=== PATIENT | male | born 1985 | race Caucasian/White ===

== ENCOUNTER 2024-09-20 08:22 | Emergency (ER) | payer OTHER ==
[2024-09-20] MEDS ORDERED: Sodium Chloride 0.9% 10 ML Syringe FLUSH PRN (08:31)
[2024-09-20 08:49] LABS: BASOPHILS ABSOLUTE AUTO 0.0 x10^3/uL (0.0-0.2); BASOPHILS PERCENT AUTO 0.5 % (0.2-1.2); EOSINOPHILS ABSOLUTE AUTO 0.1 x10^3/uL (0.0-0.5); EOSINOPHILS PERCENT AUTO 1.6 % (0.0-4.0); LYMPHOCYTES ABSOLUTE AUTO 1.7 x10^3/uL (1.0-4.8); NEUTROPHILS ABSOLUTE AUTO 3.5 x10^3/uL (1.8-7.7); WHITE BLOOD CELL COUNT,WBC 5.8 x10^3/uL (4.0-10.0)
[2024-09-20 09:02] LABS: IMMATURE GRAN ABSOLUTE AUTO 0.01 x10^3/uL (0.00-0.07); IMMATURE GRAN PERCENT AUTO 0.20 % (0.00-0.43); LYMPHOCYTES PERCENT AUTO 28.8 % (25.0-50.0); MONOCYTES ABSOLUTE AUTO 0.5 x10^3/uL (0.0-0.8); MONOCYTES PERCENT AUTO 8.5 % (2.0-11.0); NEUTROPHILS PERCENT AUTO 60.4 % (50.0-80.0); PLATELET COUNT,PLT 253 x10^3/uL (130-400); RED BLOOD CELL COUNT 4.97 x10^6/uL (4.5-6.0)
[2024-09-20] MEDS: Lactated Ringers 1,000 ML IV ONE (09:03)
[2024-09-20] MEDS: Ondansetron 4 MG/2 ML SDV IVPUSH ONE (09:10)
[2024-09-20 09:11] LABS: A/G RATIO 1.22; ALANINE AMINOTRANSFERASE,ALT 22 U/L (16-63); ASPARTATE AMNIOTRANSFERASE,AST 17 U/L (15-37); BILIRUBIN TOTAL 0.6 mg/dL (0.2-1.0); BLOOD UREA NITROGEN,BUN 18 mg/dL (7-18); CARBON DIOXIDE,CO2 26 mmol/L (21-32); CHLORIDE,CL 104 mmol/L (98-107); CREATINE KINASE,CK 159 U/L (39-308); CREATININE 1.4 mg/dL (0.70-1.30); GLUCOSE RANDOM 176 mg/dL (70-99); POTASSIUM,K 4.0 mmol/L (3.5-5.1); PROTEIN TOTAL,TP 7.1 g/dL (6.4-8.2); SODIUM,NA 141 mmol/L (136-145)
[2024-09-20 09:12] LABS: ESTIMATED GFR 66 mL/min (>=60)
[2024-09-20] MEDS: Lidocaine 1% with EPINEPHrine 1:100,000 20 ML MDV INFILT ONE (09:30)
== END 2024-09-20 10:25 | disposition home or self-care (01) ==
LOC: VM.ED 08:22 → EDBD 08:22 → VM.ED 10:25
DX: R55 Syncope and collapse (principal); E86.0 Dehydration; S01.81XA Laceration without foreign body of other part of head, initial encounter; Z79.899 Other long term (current) drug therapy; Z23 Encounter for immunization; W18.39XA Other fall on same level, initial encounter; Y93.89 Activity, other specified
CPT/HCPCS: 12013; 36415; 70450; 72125; 80053; 82550; 82947; 83735; 84484; 85025; 93005; 93010; 96361; 96374; 99283; 99284-25; J2004; J2405; J7120